=== PATIENT | male | born 1975 | race African-American/Black ===

== ENCOUNTER 2017-03-22 05:33 | Emergency (ER) | payer MEDICARE, MEDICAID ==
[2017-03-22 05:39] VITALS: BP 149/88
--- NOTE | 2017-03-22 06:06 | ER Document Report ---
ED General - General Mode of Arrival: Ambulatory Information source: Patient TRAVEL OUTSIDE OF THE [place] IN LAST 30 DAYS: No - General Chief Complaint: STD Exposure Stated Complaint: MOUTH PAIN,BLEEDING Time Seen by Provider: 03/22/17 06:06 Notes: Patient is a 41 year old male presenting to the emergency department complaining of multiple symptoms including gum bleeding, a blister on his penis , burning urination onset this morning, as well as blood in his stool onset 2 weeks ago. Patient describes his stool has hard with bright red blood on the toilet paper as he wipes. Patient states that he believes he has been exposed to herpes in the past although he has never been diagnosed with herpes. Patient states that he notices bumps on his penis on occasions onset earlier this year. Patient denies any penile discharge. (ROSSY CASTILLO) Denies inserting anything in his rectum. (JULISA HILTON) - Related Data Allergies/Adverse Reactions: No Known Allergies Allergy (Verified 03/22/17 05:39) Home Medications: Current Home Medications No Home Medications 03/22/17 [History] Past Medical History - General Information source: Patient - Cigars - Social History Smoking Status: Current Every Day Smoker Chew tobacco use (# tins/day): No Smoking Education Provided: Yes Frequency of alcohol use: None Drug Abuse: None Family History: Reviewed & Not Pertinent Patient has suicidal ideation: No Patient has homicidal ideation: No Review of Systems - Review of Systems Constitutional: No symptoms reported EENT: Other - gum bleeding Cardiovascular: No symptoms reported Respiratory: No symptoms reported Gastrointestinal: See HPI, Rectal bleeding, Other - hard stools Genitourinary: See HPI, Burning. denies: Discharge Male Genitourinary: No symptoms reported Musculoskeletal: No symptoms reported Skin: No symptoms reported Hematologic/Lymphatic: No symptoms reported Neurological/Psychological: No symptoms reported -: Yes All other systems reviewed and negative Physical Exam - Vital signs Vitals: Temp Pulse Resp BP Pulse Ox 98.6 F 83 18 149/88 H 96 03/22/17 05:36 03/22/17 05:36 03/22/17 05:36 03/22/17 05:36 03/22/17 05:36 - Notes Notes: GENERAL: Alert, interacts well. No acute distress. HEAD: Normocephalic, atraumatic. EYES: Pupils equal, round, and reactive to light. Extraocular movements intact. ENT: Oral mucosa moist, tongue midline. No cavities, no chipped teeth. NECK: Full range of motion. Supple. Trachea midline. LUNGS: Clear to auscultation bilaterally, no wheezes, rales, or rhonchi. No respiratory distress. HEART: Regular rate and rhythm. No murmurs, gallops, or rubs. ABDOMEN: Soft, non-tender. Non-distended. Bowel sounds present in all 4 quadrants. EXTREMITIES: Moves all 4 extremities spontaneously. No edema, radial and dorsalis pedis pulses 2/4 bilaterally. No cyanosis. NEUROLOGICAL: Alert and oriented x3. Normal speech. PSYCH: Normal affect, normal mood. SKIN: Warm, dry, normal turgor. No rashes or lesions noted. GENITOURINARY: Circular open blister, 1-2mm, no erythema, no exudate. RECTAL: No hemorrhoid. Irritation. Fissure at 12. (ROSSY CASTILLO) Course - Re-evaluation Re-evalutation: 03/22/17 06:18 No evidence of cavities or bleeding on oral exam, no explanation for why he had some bleeding or pain this morning. Recommended follow-up with a dentist. Genital lesion could be herpes but is open at this time, no other lesions noted , discussed with patient that given the burning it could be herpes however without other lesions and without a blister it difficult to diagnose, recommended follow-up with health department, consideration of blood testing for HSV antibodies at the health department. Rectal bleeding there is evidence of a seizure, only happens when he is constipated and having a bowel movement, patient recommended to start taking MiraLAX anymore fiber, should bleeding continue follow-up with GI. 03/22/17 06:21 No other stigmata of low platelets. (JULISA HILTON) - Vital Signs Vital signs: Temp Pulse Resp BP Pulse Ox 98.6 F 83 18 149/88 H 96 03/22/17 05:36 03/22/17 05:36 03/22/17 05:36 03/22/17 05:36 03/22/17 05:36 Discharge - Discharge Clinical Impression: Rectal bleeding, Anal fissure, Male genital lesion, Bleeding gums, Tobacco use , Tobacco abuse counseling Hypertension Qualifiers: Hypertension type: unspecified Qualified Code(s): I10 - Essential (primary) hypertension Condition: Stable Disposition: HOME, SELF-CARE Additional Instructions: Today your blood pressure is elevated. You need to follow-up with your primary care physician for further treatment of your elevated blood pressure. Today we discussed that you do use tobacco products to include cigars, please quit smoking as it is bad for your heart can increase the risk of mouth cancer. You may go to the health department to have testing performed for herpes. The health department perform sexually transmitted disease testing for free. Please see a dentist regarding the blood from milligrams. Today we did not see any evidence of infection or decay. Please dissolve 1 scoop of MiraLAX in a glass of water once a day to treat constipation. You may increase to twice a day if needed to create soft bowel movements and you may decrease to every other day if you develop diarrhea. Should the bleeding continue after you have 2 weeks worth of soft bowel movements please follow-up with your primary care physician or a mail processing machine operator. Forms: Elevated Blood Pressure, Smoking Cessation Education Referrals: KENYA MULLIGAN MD [ACTIVE STAFF] - Follow up as needed Scribe Attestation: 03/22/17 16:58 I personally performed the services described in the documentation, reviewed and edited the documentation which was dictated to the scribe in my presence, and it accurately records my words and actions. (JULISA HILTON) Scribe Documentation - Scribe Written by Lizz:: Lizz Akins, 03/22/2017 acting as scribe for :: Estefanía
== END 2017-03-22 06:30 | disposition home or self-care (01) ==
LOC: ER 05:33
DX: K62.5 Hemorrhage of anus and rectum (principal); K60.2 Anal fissure, unspecified; L98.8 Other specified disorders of the skin and subcutaneous tissue; K06.8 Other specified disorders of gingiva and edentulous alveolar ridge; I10 Essential (primary) hypertension; F17.290 Nicotine dependence, other tobacco product, uncomplicated
CPT/HCPCS: 99283

== ENCOUNTER 2017-05-19 00:28 | Emergency (ER) | payer MEDICARE, MEDICAID ==
[2017-05-19 00:43] VITALS: BP 130/75
[2017-05-19] MEDS ORDERED: IBUPROFEN 600 MG TABLET PO ONE (02:02)
--- NOTE | 2017-05-19 02:04 | ER Document Report ---
ED Extremity Problem, Lower - General Chief Complaint: Foot Pain Stated Complaint: RIGHT FOOT PAIN Time Seen by Provider: 05/19/17 02:02 Mode of Arrival: Medic Information source: Patient Notes: This is a 41-year-old man with a history of schizophrenia who presents to the emergency room with right foot pain after slipping on the ice. Patient states he hit it off of a curb. He states that the injury occurred just prior to arrival. He denies any pain to the chest, abdomen or head area. TRAVEL OUTSIDE OF THE [place] IN LAST 30 DAYS: No - HPI Patient complains to provider of: Injury Location: Foot Occurred: Just prior to arrival Where: Home Onset/Duration: Gradual Quality of pain: No pain Severity: None Pain Level: Denies Recent injury: No Associated symptoms: Chest pain Exacerbated by: Nothing Relieved by: Nothing - Related Data Allergies/Adverse Reactions: No Known Allergies Allergy (Verified 03/22/17 05:39) Past Medical History - General Information source: Patient - Social History Smoking Status: Never Smoker Cigarette use (# per day): No Chew tobacco use (# tins/day): No Smoking Education Provided: No Frequency of alcohol use: None Drug Abuse: None Lives with: Family Family History: Reviewed & Not Pertinent Patient has suicidal ideation: No Patient has homicidal ideation: No - Past Medical History Cardiac Medical History: Reports: None Pulmonary Medical History: Reports: None EENT Medical History: Reports: None Neurological Medical History: Reports: None Endocrine Medical History: Reports: None Renal/ Medical History: Reports: None. Denies: Hx Peritoneal Dialysis Malignancy Medical History: Reports None GI Medical History: Reports: None Musculoskeltal Medical History: Reports None Skin Medical History: Reports None Surgical Hx: Negative Review of Systems - Review of Systems Constitutional: denies: Chills, Fever EENT: No symptoms reported Cardiovascular: No symptoms reported Respiratory: No symptoms reported Gastrointestinal: No symptoms reported Genitourinary: No symptoms reported Male Genitourinary: No symptoms reported Musculoskeletal: See HPI Skin: No symptoms reported Hematologic/Lymphatic: No symptoms reported Neurological/Psychological: No symptoms reported Physical Exam - Vital signs Vitals: Temp Pulse Resp BP Pulse Ox 97.9 F 64 20 130/75 H 96 05/19/17 00:42 05/19/17 00:42 05/19/17 00:42 05/19/17 00:42 05/19/17 00:42 Notes: Physical exam: GENERAL: 41-year-old man, alert and oriented 3, no acute distress HEAD: Atraumatic, normocephalic. EYES: Pupils equal round and reactive to light, extraocular movements intact, sclera anicteric, conjunctiva are normal. ENT: TMs normal, nares patent, oropharynx clear without exudates. Moist mucous membranes. NECK: Normal range of motion, supple without obvious mass or JVD. LUNGS: Breath sounds clear to auscultation bilaterally and equal. No wheezes rales or rhonchi. HEART: Regular rate and rhythm without murmurs, rubs or gallops. ABDOMEN: Soft, normoactive bowel sounds. No tenderness to palpation. No guarding, no rebound. No masses appreciated. EXTREMITIES: Right foot: Good dorsal pedal pulse. There is tenderness over the first and second metatarsophalangeal joints. There is no significant swelling or erythema over the joints. The patient does have a superficial contusion to the volar aspect of the foot over the third and fourth metatarsal phalangeal joints. This is not where the patient stated he had his foot on the curb. He states he has had this for several days. There is no warmth or erythema or signs of infection. NEUROLOGICAL: Cranial nerves II through XII grossly intact. Normal speech, moving all extremities. PSYCH: Normal mood, normal affect. SKIN: Warm, Dry, normal turgor, no rashes or lesions noted. Course - Vital Signs Vital signs: Temp Pulse Resp BP Pulse Ox 97.9 F 64 20 130/75 H 96 05/19/17 00:42 05/19/17 00:42 05/19/17 00:42 05/19/17 00:42 05/19/17 00:42 - Diagnostic Test Radiology reviewed: Image reviewed, Reports reviewed - X-rays show no bony injury Discharge - Discharge Clinical Impression: Right foot contusion Condition: Stable Disposition: HOME, SELF-CARE Additional Instructions: I want you to follow-up with your primary care doctor this week. Keep the foot elevated and take ibuprofen for pain. You do have a contusion on the bottom of the foot and I think your doctor should see this. The area that he hit tristan shows no fracture on the x-rays and should get better over the next few days. Return to the ER for any fever (temperature greater than 100.4), increasing swelling, increasing pain or any concerns or getting worse. Referrals: DELMER BRENNAN MD [Primary Care Provider] - Follow up as needed
--- NOTE | 2017-05-19 03:08 | RADIOLOGY REPORT (SQ) ---
EXAM DESCRIPTION: FOOT RIGHT COMPLETE CLINICAL HISTORY: 41 years, Male, right foot pain COMPARISON: None. NUMBER OF VIEWS: 3 LIMITATIONS: None. FINDINGS: Moderately swollen appearance along the medial aspect of the right foot. No bone or joint deformity. IMPRESSION: No acute bone or joint defect. Swelling. 2011 [employer]- All Rights Reserved
== END 2017-05-19 03:23 | disposition home or self-care (01) ==
LOC: ER 00:28
DX: S90.31XA Contusion of right foot, initial encounter (principal); W00.0XXA Fall on same level due to ice and snow, initial encounter; Y92.009 Unspecified place in unspecified non-institutional (private) residence as the place of occurrence of the external cause
CPT/HCPCS: 99283; 73630; A9270

== ENCOUNTER 2017-05-26 21:05 | Emergency (ER) | payer MEDICARE, MEDICAID ==
[2017-05-26 21:35] LABS: APPEARANCE,URINE CLEAR; BILIRUBIN,URINE NEGATIVE (NEGATIVE); COLOR,URINE YELLOW; GLUCOSE, URINE NEGATIVE (NEGATIVE); KETONES,URINE NEGATIVE (NEGATIVE); LEUKOCYTE ESTERASE,URINE NEGATIVE (NEGATIVE); NITRITE,URINE NEGATIVE (NEGATIVE); PROTEIN,URINE NEGATIVE (NEGATIVE); URINE SPECIFIC GRAVITY 1.021
--- NOTE | 2017-05-26 21:45 | RADIOLOGY REPORT (SQ) ---
EXAM DESCRIPTION: FOOT RIGHT COMPLETE COMPLETED DATE/TIME: 05/26/2017 9:18 pm REASON FOR STUDY: s/p fall COMPARISON: None. NUMBER OF VIEWS: Three views. TECHNIQUE: AP, lateral and oblique radiographic images acquired of the right foot. LIMITATIONS: None. FINDINGS: MINERALIZATION: Normal. BONES: No acute fracture or dislocation. No worrisome bone lesions. JOINTS: No effusions. SOFT TISSUES: No soft tissue swelling. No foreign body. OTHER: No other significant finding. IMPRESSION: NO RADIOGRAPHIC EVIDENCE OF ACUTE INJURY. TECHNICAL DOCUMENTATION: JOB ID: [id number] [place]-72 2010 [employer]- All Rights Reserved
--- NOTE | 2017-05-26 22:39 | ER Document Report ---
HPI - HPI Patient complains to provider of: foot pain, rash Pain Level: 4 Context: Patient is a 41-year-old male with a past medical history of schizophrenia that comes emergency department for chief complaint of pain to his right foot and also concerns about a rash on his right inner thigh area. He also states he wants his blood sugar checked because he has been told he was "borderline diabetic". He states sometimes he urinates frequently but he denies any lightheadedness, nausea or vomiting, fever or chills, or any other symptoms at this time. He states he is compliant with his Zyprexa and he takes no other medications. Past Medical History - General Information source: Patient - Social History Smoking Status: Never Smoker Frequency of alcohol use: None Drug Abuse: None Lives with: Alone Family History: Reviewed & Not Pertinent Renal/ Medical History: Denies: Hx Peritoneal Dialysis Psychiatric Medical History: Reports: Hx Schizophrenia Surgical Hx: Negative - Immunizations Immunizations up to date: Yes Hx Diphtheria, Pertussis, Tetanus Vaccination: Yes Vertical Provider Document - CONSTITUTIONAL General Appearance: WD/WN, No Apparent Distress - INFECTION CONTROL TRAVEL OUTSIDE OF THE [place] IN LAST 30 DAYS: No - HEENT HEENT: Atraumatic, Normocephalic - NECK Neck: Normal Inspection - RESPIRATORY Respiratory: Breath Sounds Normal, No Respiratory Distress O2 Sat by Pulse Oximetry: 100 - CARDIOVASCULAR Cardiovascular: Regular Rate, Regular Rhythm - GI/ABDOMEN Gastrointestinal: Abdomen Soft, Abdomen Non-Tender - BACK Back: Normal Inspection - MUSCULOSKELETAL/EXTREMETIES Musculoskeletal/Extremeties: MAEW, FROM, Non-Tender - Normal evaluation of the lower extremities and feet with no pain, signs of trauma, or abnormalities of gait - NEURO Level of Consciousness: Awake, Alert, Appropriate - Patient oriented, makes good eye contact, speaks clearly, is in no distress - DERM Integumentary: Rash - There is a patchy erythematous macular rash over the right inguinal area extending to the right inner thigh, no induration, fluctuance, tenderness. Area is mildly excoriated. No vesicles, bulla, pustules, papules, or other abnormalities noted. Course - Re-evaluation Re-evalutation: Patient was previously evaluated for his foot, has already had an x-ray performed before I evaluated the patient, foot is actually normal in appearance , nontender, he ambulates without any pain. X-rays of course negative. Urinalysis with no glucose or other abnormality suggested. Rash suggests yeast source, patient admits the area is itchy, consistent in appearance with a fungal infection. Provide with clotrimazole. Discussed treatment, follow-up, return precautions. Patient states understanding and agreement. - Vital Signs Vital signs: Temp Pulse Resp BP Pulse Ox 97.5 F 66 14 132/78 H 100 05/26/17 21:25 05/26/17 21:25 05/26/17 21:25 05/26/17 21:25 05/26/17 21:25 - Laboratory Laboratory results interpreted by me: 05/26/17 21:10 Urine Urobilinogen 4.0 H Discharge - Discharge Clinical Impression: Rash Foot pain Qualifiers: Laterality: right Qualified Code(s): M79.671 - Pain in right foot Condition: Stable Disposition: HOME, SELF-CARE Additional Instructions: Your urine does not show any concerning symptoms. Your foot appears to be healing well. Your exam indicates a fungal rash - apply cream as directed. Follow up with primary care. Return to the ED for any concerning or worsening symptoms. Prescriptions: Clotrimazole 15 gm TP ASDIR PRN #1 cream.gm. PRN Reason: Naproxen [Naprosyn 375 Mg Tablet] 375 mg PO BID PRN #20 tablet PRN Reason:
[2017-05-26 22:57] VITALS: BP 134/85
== END 2017-05-26 22:56 | disposition home or self-care (01) ==
LOC: ER 21:05
DX: M79.671 Pain in right foot (principal); R21 Rash and other nonspecific skin eruption
CPT/HCPCS: 81001; 99283